=== PATIENT | female | born 1995 | race Caucasian/White ===

== ENCOUNTER 2017-12-22 13:38 | Emergency (ER) | END 2017-12-22 14:13 | disposition home or self-care (01) ==

== ENCOUNTER 2018-04-08 02:23 | Emergency (ER) | END 2018-04-08 04:39 | disposition home or self-care (01) ==

== ENCOUNTER 2018-12-29 12:14 | Emergency (ER) | payer OTHER ==
[~2018-12-29] VITALS: Ht 167.6 cm; Wt 103.0 kg
[~2018-12-29 12:14] MED LIST: BENZ-6 PO; FLUT9.9S NASAL; IBUP-1542 PO; IBUP-1561 PO; LORA-186 PO; LORA10CA PO; PHEN118L PO; PHEN177S43 MT; PSEU60TA21 PO
[2018-12-29 12:23] VITALS: Ht 167.6 cm; Wt 103.0 kg
[2018-12-29] MEDS ORDERED: ACET500C5 PO (15:03)
[2018-12-29] MEDS ORDERED: BENZ1LOZ52 MM (15:04)
[2018-12-29] MEDS ORDERED: D-ME473S2 PO (15:04)
[2018-12-29] MEDS ORDERED: OSEL75CA23 PO (15:04)
--- NOTE | 2018-12-29 15:10 | ERD ---
ER Documentation Chief Complaint Chief Complaint Complains of a sore throat and a cough x 3 days HPI Patient is a 23-year-old female who presents the ER for concerns of intermittent fevers, sore throat, cough, rhinorrhea and generalized body aches for 2 days. Patient reports tactile fevers. She states she has pain. Patient denies any drooling, trismus or hypertension of her neck. Patient denies any nausea, vomiting, vomiting or diarrhea. Patient states her cough is dry in nature. Patient has no neck pain or neck stiffness. Patient denies any chest pain or shortness of breath. Patient has been taking [id number] medication for symptoms. Patient is up-to-date with vaccinations. No recent travel. Patient did not receive the flu vaccine. ROS All systems reviewed and are negative except as per history of present illness. Medications Home Meds Active Scripts Dextromethorphan Hb-Promethazine Hcl* (Promethazine DM* Syrup) 473 Ml Syrup, 5 ML PO Q6 PRN for COUGH, #1 BOT Prov:BRAULIO BEAUCHAMP PA-C 12/29/18 Benzocaine/Menthol* (Cepacol* Sore Throat Lozenges) 1 Each Lozenge, 1 EACH MM q2h PRN for SORE THROAT, #20 LOZENGE Prov:BRAULIO BEAUCHAMP PA-C 12/29/18 Oseltamivir Phosphate* (Tamiflu*) 75 Mg Capsule, 75 MG PO BID for 5 Days, CAP Prov:BRAULIO BEAUCHAMP PA-C 12/29/18 Acetaminophen* (Tylophen*) 500 Mg Capsule, 1 CAP PO Q6H PRN for PAIN AND OR ELEVATED TEMP, #20 CAP Prov:BRAULIO BEAUCHAMP PA-C 12/29/18 Phenol* (Chloraseptic* Avon) 177 Ml Avon.pump, 2 SPRAY MT Q2H PRN for SORE THROAT for 5 Days, BOTTLE Prov:ANABELLE,TAHIR 04/08/18 Ibuprofen* (Motrin*) 600 Mg Tab, 600 MG PO Q6, #30 TAB Prov:ANABELLE,TAHIR 04/08/18 Pseudoephedrine Hcl* (Sudogest*) 60 Mg Tablet, 60 MG PO BID PRN for CONGESTION, #20 TAB Prov:ANABELLE,TAHIR 04/08/18 Loratadine* (Claritin*) 10 Mg Capsule, 10 MG PO DAILY, #30 CAP Prov:ADRIANA ORR PA-C 12/22/17 Ibuprofen* (Motrin*) 400 Mg Tab, 400 MG PO Q6H PRN for PAIN AND OR ELEVATED TEMP, #30 TAB Prov:ADRIANA ORR PA-C 12/22/17 Benzonatate* (Tessalon Perle*) 100 Mg Capsule, 100 MG PO Q8H PRN for COUGH, #30 CAP Prov:ADRIANA ORR PA-C 12/22/17 Fluticasone Propionate (Flonase Allergy Relief) 9.9 Ml Avon.susp, 1 SPRAY NASAL BID, #1 BOTTLE TO EACH NOSTRIL Prov:ADRIANA ORR PA-C 07/20/17 Ibuprofen* (Motrin*) 400 Mg Tab, 400 MG PO Q6H PRN for PAIN AND OR ELEVATED TEMP, #30 TAB Prov:ADRIANA ORR PA-C 07/20/17 Phenylephrine/Diphenhydramine (DIMETAPP COLD & CONGEST LIQUID) 118 Ml Liquid, 5 ML PO Q4H PRN for COUGH, #4 OZ Prov:ADRIANA ORR PA-C 07/20/17 Loratadine* (Claritin*) 10 Mg Tablet, 10 MG PO DAILY, #20 TAB Prov:ADRIANA ORR PA-C 07/20/17 Allergies Allergies: Coded Allergies: aspirin (Verified Allergy, Intermediate, 04/08/18) PMhx/Soc Medical and Surgical Hx: pt denies Medical Hx Hx Psychiatric Problems: Yes (ANXIETY) Hx Alcohol Use: No Hx Substance Use: No Hx Tobacco Use: No Smoking Status: Never smoker FmHx Family History: No diabetes Physical Exam Vitals Vital Signs Date Temp Pulse Resp B/P (MAP) Pulse Ox O2 O2 Flow FiO2 Time Delivery Rate 12/29/18 99.3 78 20 137/80 98 12:23 (99) Physical Exam GENERAL: Well-developed, well-nourished female. Appears in no acute distress. HEAD: Normocephalic, atraumatic. No deformities or ecchymosis noted. EYES: Pupils are equally reactive bilaterally. EOMs grossly intact. No conjunctival erythema. ENT: External ear without any masses or tenderness. Auditory canals clear bilaterally. TM visualized bilaterally, non-erythematous, non-bulging. Nasal mucosa pink with no discharge. Oropharynx is pink without any tonsillar erythema or exudates. No uvula deviation. No kissing tonsils. NECK: Supple, no lymphadenopathy. No meningeal signs. LUNGS: Clear to auscultation bilaterally. No rhonchi, wheezing, rales or coarse breath sounds. HEART: Regular rate and rhythm. No murmurs, rubs or gallops. EXTREMITIES: Equal pulses bilaterally. No peripheral clubbing, cyanosis or edema. No unilateral leg swelling. NEUROLOGIC: Alert. Interactive throughout exam. Moving all four extremities. Normal speech. Steady gait. SKIN: Normal color. Warm and dry. No rashes or lesions. Procedures/MDM MEDICAL DECISION MAKING: This is a 23-year-old female presents the ER for concerns of generalized body aches, cough, rhinorrhea, fever and throat pain for the last 2 days.. Vital signs were reviewed. Patient was afebrile. Patient was not hypoxic. ENT exam was normal. Lung exam was normal. Patient likely has an influenza-like illness. Patient will be treated with a course of Tamiflu as she is presenting with symptoms within 48 hours of onset. Low suspicion for sepsis, dehydration, pneumonia, meningitis, sinusitis, otitis externa, acute otitis media, strep pharyngitis, epiglottitis or peritonsillar abscess. Patient was nontoxic, [id number] prior to discharge PRESCRIPTIONS: Tylenol, ibuprofen, Cepacol, promethazine DM DISCHARGE: At this time, patient is stable for discharge and outpatient management. Supportive therapies such as OTC throat lozenges, salt water gurgles, popsicles and jello discussed. I have instructed the patient to follow-up with his/her primary care physician in 1-2 days. I have instructed the patient to promptly return to the ER for any new or worsening symptoms including increased pain, swelling, fever, nausea, vomiting, weakness or difficulty breathing. The patient and/or family expressed understanding of and agreement with this plan. All questions were answered. Home care instructions were provided. Disclaimer: Inadvertent spelling and grammatical errors are likely due to EHR/dictation software use and do not reflect on the overall quality of patient care. Also, please note that the electronic time recorded on this note does not necessarily reflect the actual time of the patient encounter. Departure Diagnosis: Primary Impression: Influenza-like illness Condition: Fair Patient Instructions: Influenza (Child) Referrals: [facility] YOU HAVE RECEIVED A MEDICAL SCREENING EXAM AND THE RESULTS INDICATE THAT YOU DO NOT HAVE A CONDITION THAT REQUIRES URGENT TREATMENT IN THE EMERGENCY DEPARTMENT. FURTHER EVALUATION AND TREATMENT OF YOUR CONDITION CAN WAIT UNTIL YOU ARE SEEN IN YOUR DOCTORS OFFICE WITHIN THE NEXT 1-2 DAYS. IT IS YOUR RESPONSIBILITY TO MAKE AN APPOINTMENT FOR FOLOW-UP CARE. IF YOU HAVE A PRIMARY DOCTOR --you should call your primary doctor and schedule an appointment IF YOU DO NOT HAVE A PRIMARY DOCTOR YOU CAN CALL OUR PHYSICIAN REFERRAL HOTLINE AT IF YOU CAN NOT AFFORD TO SEE A PHYSICIAN YOU CAN CHOSE FROM THE FOLLOWING [facility] [id number] [facility]. [facility] [place] [address] [facility] [address] [facility] [facility] [address] [facility]. [facility] [address] [facility]. [facility] [address] [facility]. [facility] YOU HAVE RECEIVED A MEDICAL SCREENING EXAM AND THE RESULTS INDICATE THAT YOU DO NOT HAVE A CONDITION THAT REQUIRES URGENT TREATMENT IN THE EMERGENCY DEPARTMENT. FURTHER EVALUATION AND TREATMENT OF YOUR CONDITION CAN WAIT UNTIL YOU ARE SEEN IN YOUR DOCTORS OFFICE WITHIN THE NEXT 1-2 DAYS. IT IS YOUR RESPONSIBILITY TO MAKE AN APPOINTMENT FOR FOLOW-UP CARE. IF YOU HAVE A PRIMARY DOCTOR --you should call your primary doctor and schedule and appointment IF YOU DO NOT HAVE A PRIMARY DOCTOR YOU CAN CALL OUR PHYSICIAN REFERRAL HOTLINE AT . IF YOU CAN NOT AFFORD TO SEE A PHYSICIAN YOU CAN CHOSE FROM THE FOLLOWING [facility]: [facility] [address] [place] [address] [facility] [address] [place] [address] [facility] + [address] [address] Additional Instructions: Call your primary care doctor TOMORROW for an appointment during the next 1-2 days.See the doctor sooner or return here if your condition worsens before your appointment time. BRAULIO BEAUCHAMP PA-C Dec 29, 2018 15:09
[2018-12-29 15:42] VITALS: BP 130/81; PULSE 82; RESP 20
== END 2018-12-29 15:43 | disposition home or self-care (01) ==
LOC: FTE 12:14
DX: J11.1 Influenza due to unidentified influenza virus with other respiratory manifestations (principal)
CPT/HCPCS: 99283